=== PATIENT | female | born 1995 | race Caucasian/White ===

== ENCOUNTER → 2021-07-07 | Outpatient (CLI) | payer OTHER ==
--- NOTE | 2021-07-07 11:11 | REP ---
INDICATION: REPEAT DATING. COMPARISON: None. TECHNIQUE: Transvesical scanning only FINDINGS: Within the uterus there is an anechoic structure with increased echoes surrounding it consistent with a decidual reaction. Within the gestational sac there is echogenic material consistent with a pole the mean crown-rump length measurement of which is consistent with a 10 week 1 day gestational age. Based on that the estimated date of delivery is 02/01/2022. Doppler interrogation of the heart shows a heart rate of 178 beats per minute. No chorionic or subchorionic abnormalities are noted. Within the gestational sac there is a tiny anechoic structure consistent with a yolk sac. Evaluation of the maternal adnexal spaces showed no gross abnormalities. IMPRESSION: Early OB ultrasound as described above. <Electronically signed by Conrad Boggs > 07/07/21 [id number]
== END ==
LOC: M RAD 10:33
PROVIDERS: ATTEND Obstetrics & Gynecology
DX: Z36.9 Encounter for antenatal screening, unspecified (principal); Z3A.10 10 weeks gestation of pregnancy

== ENCOUNTER 2021-11-24 21:45 | Outpatient (CLI) | payer OTHER ==
[~2021-11-24] VITALS: Ht 160 cm; Wt 80.1 kg
[2021-11-24 22:04] VITALS: BP 127/81
[2021-11-24] MEDS ORDERED: PRENTAB9 PO (22:22)
== END 2021-11-24 22:58 | disposition home or self-care (01) ==
LOC: M LDO 21:45
PROVIDERS: ATTEND Obstetrics & Gynecology
DX: O36.8130 Decreased fetal movements, third trimester, not applicable or unspecified (principal); Z3A.30 30 weeks gestation of pregnancy; Z88.1 Allergy status to other antibiotic agents; Z88.6 Allergy status to analgesic agent; Z91.040 Latex allergy status
CPT/HCPCS: 59025; G0378; G0463

== ENCOUNTER 2021-12-26 15:19 | Outpatient (CLI) | payer OTHER ==
[~2021-12-26] VITALS: Ht 160 cm; Wt 80.7 kg
[~2021-12-26 15:19] MED LIST: PRENTAB9 PO
[2021-12-26 15:44] VITALS: BP 128/89
[2021-12-26] MEDS ORDERED: TUMS750C5 PO (15:51)
[2021-12-26] MEDS ORDERED: HOME MED LIST COMPLETE! XX SCH (15:55)
[2021-12-26 16:00] VITALS: BP 125/84
[2021-12-26] MEDS ORDERED: ACETAMINOPHEN 500 MG TAB PO ONE (16:25)
[2021-12-26 16:43] LABS: HEMATOCRIT 28.5 % (36.0-47.0); HEMOGLOBIN 8.3 g/dl (12.0-15.5); MEAN CORPUSCULAR HEMOGLOBIN 20.8 pg (27.0-33.0); MEAN CORPUSCULAR HGB CONC 29.1 g/dl (32.0-36.5); MEAN CORPUSCULAR VOLUME 71.3 fl (80.0-96.0); PLATELET COUNT, AUTOMATED 223 10^3/uL (150-450); WHITE BLOOD COUNT 9.8 10^3/uL (4.0-10.0)
[2021-12-26 17:07] VITALS: BP 133/84
[2021-12-26 17:07] LABS: ALT/SGPT 24 U/L (12-78); BILIRUBIN,TOTAL 0.2 MG/DL (0.2-1.0); CREATININE FOR GFR 0.48 MG/DL (0.55-1.30); GLOMERULAR FILTRATION RATE > 60.0 (>60); LDH LACTATE DEHYDROGENASE 176 U/L (84-246); URIC ACID 3.3 MG/DL (2.6-6.0)
[2021-12-26 17:19] LABS: CREATININE,RANDOM URINE 74.5 MG/DL; TOTAL PROTEIN,RANDOM URINE 10.8 MG/DL (0.0-12.0)
[2021-12-26 18:11] VITALS: BP 129/82
== END 2021-12-26 18:23 | disposition home or self-care (01) ==
LOC: M LDO 15:19
PROVIDERS: ATTEND Obstetrics & Gynecology
DX: O26.893 Other specified pregnancy related conditions, third trimester (principal); R03.0 Elevated blood-pressure reading, without diagnosis of hypertension; Z3A.34 34 weeks gestation of pregnancy; Z88.1 Allergy status to other antibiotic agents; Z91.040 Latex allergy status; Z88.8 Allergy status to other drugs, medicaments and biological substances
CPT/HCPCS: 36415; 59025; 76815; 76819; 76820; 82247; 82565; 82570; 83615; 84156; 84450; 84460; 84550; 85027; G0378; G0463

== ENCOUNTER 2022-01-20 13:49 | Inpatient (IN) | payer OTHER ==
[2022-01-20] VITALS (9 sets, daily range): BP systolic 134–172; BP diastolic 80–112
[~2022-01-20] VITALS: Ht 160 cm; Wt 81.8 kg
[~2022-01-20 13:49] MED LIST changes: +TUMS750C5 PO
[2022-01-20] MEDS ORDERED: LIDOCAINE 1% MDV 20ML VIAL INFIL PRN (15:30)
[2022-01-20] MEDS ORDERED: TRANEXAMIC ACID INJection 1,000 MG in NS 100 ML IV PRN (15:30)
[2022-01-20] MEDS ORDERED: OXYTOCIN DRIP 30 UNITS in IV 1 EA IV PRN (15:30)
[2022-01-20 15:52] LABS: HEMATOCRIT 29.6 % (36.0-47.0); HEMOGLOBIN 8.7 g/dl (12.0-15.5); MEAN CORPUSCULAR HEMOGLOBIN 20.2 pg (27.0-33.0); MEAN CORPUSCULAR HGB CONC 29.4 g/dl (32.0-36.5); MEAN CORPUSCULAR VOLUME 68.8 fl (80.0-96.0); PLATELET COUNT, AUTOMATED 230 10^3/uL (150-450); WHITE BLOOD COUNT 8.5 10^3/uL (4.0-10.0)
[2022-01-20] MEDS ORDERED: OXYTOCIN DRIP 30 UNITS in IV 1 EA IV SCH (16:05)
[2022-01-20 16:09] LABS: APPEARANCE, URINE HAZY (CLEAR); BACTERIA, URINE AUTO 3+ (NEGATIVE); BILIRUBIN, URINE AUTO NEGATIVE (NEGATIVE); BLOOD, URINE BLOOD NEGATIVE (NEGATIVE); COLOR, URINE YELLOW (YELLOW); GLUCOSE, URINE (UA) AUTO NEGATIVE (NEGATIVE); KETONE, URINE AUTO NEGATIVE (NEGATIVE); LEUKOCYTE ESTERASE, URINE AUTO 3+ (NEGATIVE); MUCUS, URINE SMALL (NEGATIVE); NITRITE, URINE AUTO NEGATIVE (NEGATIVE); PROTEIN, URINE AUTO NEGATIVE (NEGATIVE); RBC, URINE AUTO 3 /HPF (0-3); SPECIFIC GRAVITY URINE AUTO 1.009 (1.002-1.035); SQUAMOUS EPITHELIAL CELL UR AU 10 /HPF (0-6); UROBILINOGEN, URINE AUTO 0.2 mg/dL (0.0-2.0); WBC, URINE AUTO 55 /HPF (0-3)
[2022-01-20 16:18] LABS: ALT/SGPT 20 U/L (12-78); BILIRUBIN,TOTAL 0.2 MG/DL (0.2-1.0); CREATININE FOR GFR 0.61 MG/DL (0.55-1.30); GLOMERULAR FILTRATION RATE > 60.0 (>60); LDH LACTATE DEHYDROGENASE 171 U/L (84-246); URIC ACID 4.2 MG/DL (2.6-6.0)
[2022-01-20] MEDS: LR 1,000 ML IV SCH (18:50)
[2022-01-20] MEDS ORDERED: LABETALOL 100MG/20ML VIAL IV ONE (20:45)
[2022-01-21] VITALS (28 sets, daily range): BP systolic 117–182; BP diastolic 65–116
[2022-01-21] MEDS: LR 1,000 ML IV SCH (04:00)
[2022-01-21] MEDS: PRENATAL VITAMINS CHEWABLE TABLET PO SCH (09:00)
[2022-01-21 10:19] LABS: HEMATOCRIT 27.1 % (36.0-47.0); MEAN CORPUSCULAR HGB CONC 29.5 g/dl (32.0-36.5); MEAN CORPUSCULAR VOLUME 67.6 fl (80.0-96.0); PLATELET COUNT, AUTOMATED 206 10^3/uL (150-450); RED BLOOD COUNT 4.01 10^6/uL (4.00-5.40); WHITE BLOOD COUNT 8.6 10^3/uL (4.0-10.0)
[2022-01-21 11:02] LABS: CORD GAS HCO3 V 20.2 MEQ/L; CORD GAS O2 SAT V 96.2 %; CORD GAS PCO2 V 34.7 mmHg; CORD GAS PH V 7.382 UNITS; CORD GAS PO2 V 64.1 mmHg; CORD GAS SBC V 21.2 MEQ/L; CORD GAS TCO2 V 21.2 MEQ/L
[2022-01-21 11:05] LABS: CORD GAS ABE A -7.1; CORD GAS HCO3 A 17.6 MEQ/L; CORD GAS O2 SAT A 91.1 %; CORD GAS PCO2 A 33.8 mmHg; CORD GAS PH A 7.334 UNITS; CORD GAS PO2 A 50.8 mmHg; CORD GAS SBC A 18.7 MEQ/L; CORD GAS TCO2 A 18.6 MEQ/L
[2022-01-21] MEDS ORDERED: DIBUCAINE 1% OINTMENT 30GM TOP PRN ×8 (11:35)
[2022-01-21] MEDS ORDERED: DOCUSATE SODIUM 100MG CAPSULE PO PRN ×8 (11:35)
[2022-01-21] MEDS ORDERED: OXYTOCIN DRIP 30 UNITS in IV 1 EA IV SCH ×32 (11:35)
[2022-01-21] MEDS ORDERED: LR 1,000 ML IV SCH ×8 (11:35)
[2022-01-21] MEDS ORDERED: ONDANSETRON 4MG/2ML VIAL IV PRN ×8 (11:35)
[2022-01-21] MEDS ORDERED: ACETAMINOPHEN 500 MG TAB PO SCH ×7 (11:35)
[2022-01-21] MEDS ORDERED: MEASLES,MUMPS,RUBELLA VACCINE INJ (MMR-II) (90707) SC SCH ×8 (11:35)
[2022-01-21] MEDS ORDERED: PROMETHAZINE 25 MG TAB PO PRN ×8 (11:35)
[2022-01-21] MEDS ORDERED: RHOGAM 300 MCG (1500 IU) INJ (J2790) IM SCH ×8 (11:35)
[2022-01-21] MEDS: ACETAMINOPHEN 500 MG TAB PO SCH ×3 (11:35→23:33)
[2022-01-21 11:56] LABS: CREATININE,RANDOM URINE 49.9 MG/DL; TOTAL PROTEIN,RANDOM URINE 9.4 MG/DL (0.0-12.0)
[2022-01-22] VITALS (7 sets, daily range): BP systolic 129–142; BP diastolic 70–95
[2022-01-22] MEDS: ACETAMINOPHEN 500 MG TAB PO SCH ×4 (05:30→23:44)
[2022-01-22] MEDS ORDERED: COLA100C5 PO (06:00)
[2022-01-22] MEDS ORDERED: ACET-683 PO (06:00)
[2022-01-22 07:45] LABS: MEAN CORPUSCULAR HEMOGLOBIN 20.1 pg (27.0-33.0); MEAN CORPUSCULAR HGB CONC 28.9 g/dl (32.0-36.5); MEAN CORPUSCULAR VOLUME 69.4 fl (80.0-96.0); PLATELET COUNT, AUTOMATED 209 10^3/uL (150-450); RED BLOOD COUNT 2.84 10^6/uL (4.00-5.40); WHITE BLOOD COUNT 9.2 10^3/uL (4.0-10.0)
[2022-01-22 07:49] LABS: HEMATOCRIT 19.7 % (36.0-47.0)
[2022-01-22 07:53] LABS: HEMOGLOBIN 5.7 g/dl (12.0-15.5)
[2022-01-22] MEDS: PRENATAL VITAMINS CHEWABLE TABLET PO SCH (08:40)
[2022-01-22] MEDS ORDERED: IRON SUCROSE 100MG 5ML VIAL (J1756 PER 1MG) IV ONE (08:40)
[2022-01-22] MEDS ORDERED: PRENATAL VITAMINS CHEWABLE TABLET PO SCH ×15 (09:00)
[2022-01-22] MEDS ORDERED: IRON SUCROSE 200 MG in NS 100 ML OVER 1 HR IV ONE (11:00)
[2022-01-23] MEDS: ACETAMINOPHEN 500 MG TAB PO SCH ×2 (05:43→11:35)
[2022-01-23 06:00] VITALS: BP 112/68
[2022-01-23] MEDS: PRENATAL VITAMINS CHEWABLE TABLET PO SCH (07:55)
== END 2022-01-23 12:55 | disposition home or self-care (01) | DRG 807 ==
LOC: M LDI 13:49 → M OBS 01-21 12:45
PROVIDERS: ADMIT Obstetrics & Gynecology; ATTEND Obstetrics & Gynecology
PROC: 3E033VJ Introduction of Other Hormone into Peripheral Vein, Percutaneous Approach (ICD-10-PCS; 2022-01-20)
PROC: 10E0XZZ Delivery of Products of Conception, External Approach (ICD-10-PCS; principal; 2022-01-21)
PROC: 0KQM0ZZ Repair Perineum Muscle, Open Approach (ICD-10-PCS; 2022-01-21)
DX: O10.02 Pre-existing essential hypertension complicating childbirth (principal); Z37.0 Single live birth; Z3A.38 38 weeks gestation of pregnancy; Z91.14 Patient's other noncompliance with medication regimen; O70.1 Second degree perineal laceration during delivery; O99.344 Other mental disorders complicating childbirth; F41.9 Anxiety disorder, unspecified

== ENCOUNTER → 2022-03-24 | Outpatient (CLI) | payer OTHER ==
[~2022-03-24] MED LIST changes: +ACET-683 PO; +ALBUTEROL SULFATE 2.5 MG/0.5 ML INH NEB SOLN INH PRN; +COLA100C5 PO; +EPINEPHrine INJ 1 MG/ML 1ML AMP IM PRN; +IRON SUCROSE 200 MG in NS 100 ML OVER 1 HR IV ONE; +NS 1,000 ML IV SCH; +diphenhydrAMINE 50MG/ML VIAL (J1200) IV PRN; +methylPREDNISolone 125MG 2ML VIAL IV PRN
== END ==
LOC: M INFU 08:55
PROVIDERS: ATTEND Advanced Practice Midwife
DX: O99.03 Anemia complicating the puerperium (principal); Z53.9 Procedure and treatment not carried out, unspecified reason

== ENCOUNTER 2022-03-31 08:30 | Outpatient (CLI) | payer OTHER ==
[~2022-03-31] VITALS: Ht 160 cm; Wt 71.7 kg
[2022-03-31 08:59] VITALS: BP 140/97
== END 2022-03-31 09:10 | disposition home or self-care (01) ==
LOC: M INFU 08:30
PROVIDERS: ATTEND Advanced Practice Midwife
DX: Z53.29 Procedure and treatment not carried out because of patient's decision for other reasons (principal)

== ENCOUNTER 2022-06-12 18:00 | Emergency (ER) | payer OTHER ==
[~2022-06-12] VITALS: Ht 162.6 cm; Wt 71.0 kg
[~2022-06-12 18:00] MED LIST changes: -ALBUTEROL SULFATE 2.5 MG/0.5 ML INH NEB SOLN INH PRN; -EPINEPHrine INJ 1 MG/ML 1ML AMP IM PRN; -IRON SUCROSE 200 MG in NS 100 ML OVER 1 HR IV ONE; -NS 1,000 ML IV SCH; -diphenhydrAMINE 50MG/ML VIAL (J1200) IV PRN; -methylPREDNISolone 125MG 2ML VIAL IV PRN
[2022-06-12 18:43] LABS: BASO % 0.7 % (0.0-1.0); EOS # 0.3 10^3/uL (0.0-0.5); EOS % 5.2 % (0.0-3.0); HEMATOCRIT 34.5 % (36.0-47.0); HEMOGLOBIN 10.2 g/dl (12.0-15.5); LYMPH # 1.5 10^3/uL (1.5-5.0); LYMPH % 24.3 % (24.0-44.0); MEAN CORPUSCULAR HEMOGLOBIN 20.8 pg (27.0-33.0); MEAN CORPUSCULAR HGB CONC 29.6 g/dl (32.0-36.5); MEAN CORPUSCULAR VOLUME 70.3 fl (80.0-96.0); MONO # 0.4 10^3/uL (0.0-0.8); MONO % 6.9 % (2.0-8.0); NEUTROPHILS # 3.9 10^3/uL (1.5-8.5); NEUTROPHILS % 62.7 % (36.0-66.0); PLATELET COUNT, AUTOMATED 275 10^3/uL (150-450); RED BLOOD COUNT 4.91 10^6/uL (4.00-5.40); WHITE BLOOD COUNT 6.1 10^3/uL (4.0-10.0)
[2022-06-12 19:20] LABS: HCG, SERUM QUALITATIVE NEGATIVE (NEGATIVE)
[2022-06-12 19:28] LABS: ALT/SGPT 27 U/L (12-78); BILIRUBIN,DIRECT 0.1 MG/DL (0.0-0.2); BILIRUBIN,TOTAL 0.2 MG/DL (0.2-1.0); BLOOD UREA NITROGEN 15 MG/DL (7-18); CALCIUM LEVEL 9.4 MG/DL (8.5-10.1); CARBON DIOXIDE LEVEL 29 MEQ/L (21-32); CHLORIDE LEVEL 106 MEQ/L (98-107); CREATININE FOR GFR 0.89 MG/DL (0.55-1.30); GLOMERULAR FILTRATION RATE > 60.0 (>60); GLUCOSE, FASTING 102 MG/DL (70-100); LIPASE 144 U/L (73-393); POTASSIUM SERUM 3.9 MEQ/L (3.5-5.1); SODIUM LEVEL 141 MEQ/L (136-145); TOTAL PROTEIN 7.7 GM/DL (6.4-8.2)
[2022-06-12] MEDS ORDERED: **hydrALAZINE** 10 MG TAB PO ONE (19:30)
[2022-06-12 20:25] VITALS: BP 156/102
== END 2022-06-12 20:27 | disposition home or self-care (01) ==
LOC: M ED 18:00
DX: I10 Essential (primary) hypertension (principal); F41.9 Anxiety disorder, unspecified; Z88.0 Allergy status to penicillin; Z88.8 Allergy status to other drugs, medicaments and biological substances; Z91.040 Latex allergy status